=== PATIENT | male | born 1980 | race Caucasian/White ===

== ENCOUNTER 2025-04-22 04:14 | Emergency (ER) | payer BC, SELFPAY ==
[2025-04-22 04:16] VITALS: BP 128/82
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
[2025-04-22] MEDS: NSS 500 IV ×2 (05:01→06:15)
[2025-04-22 05:14] LABS: % Basophils 0.4 % (0-2); % Eosinophils 3.5 % (0-6); % Immature Granulocytes 0.3 % (0-0.5); % Lymphocytes 14.1 % (20.5-51.1); % Monocytes 6.2 % (1.7-9.3); % Neutrophils 75.5 % (42.2-75.2); Absolute Eosinophils 0.4 10^3/uL (0-0.7); Absolute Lymphocytes 1.5 10^3/uL (1.2-3.4); Absolute Monocytes 0.7 10^3/uL (0.1-0.6); Absolute Neutrophils 8.3 10^3/uL (1.4-6.5); Hematocrit 38.5 % (39.0-52.0); Hemoglobin 13.5 g/dL (13.0-18.0); Mean Corp Hgb Conc. 35.1 g/dL (33.0-37.0); Mean Corpuscular Hgb 31.3 pg (27.0-31.0); Mean Corpuscular Volume 89.3 fL (80.0-94.0); Mean Platelet Volume 8.5 fL (7.4-10.4); Nucleated Red Blood Cells % 0 % (-); Platelet Count 240 10^3/uL (130-400); Red Blood Cell Count 4.31 10^6/uL (4.70-6.10); Red Cell Dist. Width 12.1 % (11.5-14.5); White Blood Cell Count 10.9 10^3/uL (4.8-10.8)
[2025-04-22 05:15] VITALS: BP 121/75
[2025-04-22 05:35] LABS: ALT (SGPT) 25 U/L (0-50); AST (SGOT) 23 U/L (17-59); Albumin 4.4 g/dl (3.5-5.0); Alkaline Phosphatase 39 U/L (38-126); Blood Urea Nitrogen 17 mg/dl (9-20); Calcium 9.2 mg/dl (8.4-10.2); Carbon Dioxide 28 mmol/L (22-30); Chloride 107 mmol/L (98-107); Glucose 105 mg/dl (70-99); Potassium 4.6 mmol/L (3.5-5.1); Sodium 139 mmol/L (135-145); Total Bilirubin 0.8 mg/dl (0.2-1.3); Total Protein 6.6 g/dl (6.3-8.2); eGFR > 60.00
[2025-04-22 05:38] VITALS: BP 106/82; BP 123/77; BP 160/95; PULSE 72; PULSE 74; PULSE 75; BMI 23.0
[2025-04-22] MEDS: ZOFRAN 4 MG IV (06:15)
[2025-04-22 06:41] VITALS: BP 110/83
== END 2025-04-22 06:47 | disposition home or self-care (01) ==
LOC: EMR 04:14
PROVIDERS: Physician Assistant; EMERGENCY PHYSICIAN Student in an Organized Health Care Education/Training Program
DX: I95.1 Orthostatic hypotension (principal); G47.00 Insomnia, unspecified; R42 Dizziness and giddiness; F17.200 Nicotine dependence, unspecified, uncomplicated; G25.0 Essential tremor; J45.909 Unspecified asthma, uncomplicated
CPT/HCPCS: 99285; 96374; 96361; 70450; 80053; 85025; 93005

== ENCOUNTER 2025-05-14 03:27 | Emergency (ER) | payer BC, SELFPAY ==
[2025-05-14] VITALS (8 sets, daily range): BP systolic 102–134; BP diastolic 71–92; PULSE 67–68; BMI 21.7
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
[2025-05-14 06:55] LABS: % Basophils 0.5 % (0-2); % Eosinophils 1.5 % (0-6); % Immature Granulocytes 0.3 % (0-0.5); % Lymphocytes 16.7 % (20.5-51.1); % Monocytes 7.2 % (1.7-9.3); % Neutrophils 73.8 % (42.2-75.2); Absolute Basophils 0.1 10^3/uL (0-0.2); Absolute Eosinophils 0.1 10^3/uL (0-0.7); Absolute Lymphocytes 1.6 10^3/uL (1.2-3.4); Absolute Monocytes 0.7 10^3/uL (0.1-0.6); Absolute Neutrophils 6.9 10^3/uL (1.4-6.5); Hematocrit 38.5 % (39.0-52.0); Hemoglobin 13.5 g/dL (13.0-18.0); Mean Corp Hgb Conc. 35.1 g/dL (33.0-37.0); Mean Corpuscular Hgb 31.1 pg (27.0-31.0); Mean Corpuscular Volume 88.7 fL (80.0-94.0); Mean Platelet Volume 8.3 fL (7.4-10.4); Nucleated Red Blood Cells % 0 % (-); Platelet Count 251 10^3/uL (130-400); Red Blood Cell Count 4.34 10^6/uL (4.70-6.10); Red Cell Dist. Width 11.9 % (11.5-14.5); White Blood Cell Count 9.4 10^3/uL (4.8-10.8)
[2025-05-14 06:57] LABS: ALT (SGPT) 25 U/L (0-50); AST (SGOT) 22 U/L (17-59); Albumin 4.6 g/dl (3.5-5.0); Alkaline Phosphatase 40 U/L (38-126); Blood Urea Nitrogen 18 mg/dl (9-20); Calcium 9.8 mg/dl (8.4-10.2); Carbon Dioxide 29 mmol/L (22-30); Chloride 107 mmol/L (98-107); Estimated Creatinine Clearance 103 ml/min; Glucose 106 mg/dl (70-99); Potassium 4.9 mmol/L (3.5-5.1); Sodium 140 mmol/L (135-145); Total Bilirubin 0.8 mg/dl (0.2-1.3); Total Protein 6.9 g/dl (6.3-8.2); eGFR > 60.00
[2025-05-14 07:28] LABS: TSH Reflex To Free T4 0.41 uIU/ml (0.47-4.68)
[2025-05-14 07:58] LABS: Free T4 1.16 ng/dl (0.78-2.19)
[2025-05-14 13:28] LABS: Lyme Antibody Screen, EIA Negative (Negative)
== END 2025-05-14 09:53 | disposition home or self-care (01) ==
LOC: EMR 03:27
PROVIDERS: Physician Assistant; EMERGENCY PHYSICIAN Emergency Medicine
DX: G47.00 Insomnia, unspecified (principal); J45.909 Unspecified asthma, uncomplicated; F17.200 Nicotine dependence, unspecified, uncomplicated
CPT/HCPCS: 99284; 70450; 80053; 84439; 84443; 85025; 86618

== ENCOUNTER 2025-06-09 06:46 | Emergency (ER) | payer BC, SELFPAY ==
[2025-06-09] VITALS (11 sets, daily range): BP systolic 97–150; BP diastolic 62–104; PULSE 66–100; BMI 21.8
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
[2025-06-09 07:49] LABS: Hematocrit 39.5 % (39.0-52.0); Hemoglobin 13.8 g/dL (13.0-18.0); Mean Corp Hgb Conc. 34.9 g/dL (33.0-37.0); Mean Corpuscular Volume 89.8 fL (80.0-94.0); Nucleated Red Blood Cells % 0 % (-); Platelet Count 246 10^3/uL (130-400); Red Cell Dist. Width 12.3 % (11.5-14.5)
[2025-06-09] MEDS: NSS 500 IV (07:56)
[2025-06-09 08:29] LABS: ALT (SGPT) 20 U/L (0-50); AST (SGOT) 19 U/L (17-59); Albumin 4.6 g/dl (3.5-5.0); Alkaline Phosphatase 47 U/L (38-126); Blood Urea Nitrogen 11 mg/dl (9-20); Calcium 9.7 mg/dl (8.4-10.2); Carbon Dioxide 27 mmol/L (22-30); Chloride 106 mmol/L (98-107); Estimated Creatinine Clearance 103 ml/min; Glucose 108 mg/dl (70-99); Potassium 4.4 mmol/L (3.5-5.1); Sodium 138 mmol/L (135-145); Total Protein 6.8 g/dl (6.3-8.2); eGFR > 60.00
[2025-06-09] MEDS: NSS 1000 IV (09:02)
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
--- NOTE | 2025-06-09 09:15 | EDRN ---
Lab notified of add on tests as per neurology.
--- NOTE | 2025-06-09 09:17 | EDRN ---
Pt feels rt arm is weak. No ataxia noted
[2025-06-09] MEDS: ZOFRAN 4 MG IV (10:08)
[2025-06-09 13:54] LABS: Ferritin 154.0 ng/ml (17.9-464.0)
[2025-06-09 14:16] LABS: Folate 12.4 ng/ml (2.76-20); Vitamin B12 428 pg/ml (239-931)
== END 2025-06-09 13:35 | disposition home or self-care (01) ==
LOC: EMR 06:46
PROVIDERS: Physician Assistant; CONSULT PHYSICIAN Psychiatry & Neurology Neurology; EMERGENCY PHYSICIAN Emergency Medicine; FAMILY PHYSICIAN Physician Assistant
DX: R25.1 Tremor, unspecified (principal); R42 Dizziness and giddiness; G47.00 Insomnia, unspecified; R26.89 Other abnormalities of gait and mobility; M54.9 Dorsalgia, unspecified; M54.2 Cervicalgia; J45.909 Unspecified asthma, uncomplicated; F17.200 Nicotine dependence, unspecified, uncomplicated
CPT/HCPCS: 99284; 96374; 96361 ×3; 80053; 80306; 82077; 82607; 82728; 82746; 85025; 85652; 93005

== ENCOUNTER 2025-06-21 17:52 | Emergency (ER) | payer BC, SELFPAY ==
[2025-06-21 17:54] VITALS: BP 119/81
[2025-06-21] MEDS: VALIUM 5 MG PO (19:34)
--- NOTE | 2025-06-21 23:09 | ED.GENMED ---
History of Present Illness
General
Chief Complaint: Musculo-Skeletal Complaint
Source: patient
Exam Limitations: none
Time Seen by Provider: 06/21/25 18:59
Nursing documentation reviewed up to this point in time: agreed with
History of Present Illness
History of Present Illness:
Patient to ED with report of tremors to [facility] x 1 year. He has been evaluated in the ED in the past. He was seen here last week due to tremors and feeling dizzy. Neurology was consulted and he was evaluated in ED. Neurology report reviewed. As
per report, tremors are due to 'functional neurological disorder'. He was advised to followup with psychiatry, PT, vestibular therapy. He states he has an appointment with vestibular therapist next week. Followup with neurology in August. He
reports he is here tonight because he is unable to sleep due to the tremors. No new complaints. To ED accompanied by family for eval.
Past History
Past History
ED Past Medical History: Asthma and Other (right tremor)
Social History
Tobacco: Smoker
Alcohol: None
Employment: Employed
Family History
Family History: Negative Diabetes or Hypertension
Review of Systems
Review of Systems
All Other Systems: ROS reviewed and negative except as documented in HPI and ROS
Constitutional: Reports sleep disturbance
EENT: Reports no symptoms
Respiratory: Reports no symptoms
Cardiac: Reports no symptoms
ABD/GI: Reports no symptoms
: Reports no symptoms
Musculoskeletal: Reports no symptoms
Skin: Reports no symptoms
Neurological: Reports other (right arm tremor)
Psychiatric: Reports anxiety
Phy Exam
General Physical Exam
General Presentation: well appearing and mild distress
General age: appears stated age
General Skin: warm and dry
General Habitus: normal
General Mental: alert
Eye Exam
Eye Exam: PERRL, EOMI, conjunctiva normal and globe normal
Cardiovascular Exam
Cardiovascular Exam: regular rate/rhythm and no edema
Neurological Exam
Neurological Exam: alert, oriented x3, CN II-XII intact, no motor deficits, no sensory deficits and speech normal
Musculoskeletal Exam
Musculoskeletal Exam: full ROM, neuro vasc intact and other (right arm tremor at rest. No tremor noted with movement of arm)
Skin Exam
Skin Exam: normal color, warm/dry and no rash
Psychiatric Exam
Psychiatric Exam: normal mood/affect
Course
Orders/Labs/Results
Orders:
Orders
06/21/25 19:13
Diazepam [Valium] 5 mg PO NOW STA
Vital Signs
Initial and Last Documented VS:
Initial Vital Signs
Temp Pulse Resp BP Pulse Ox
98.5 F 92 16 119/81 98
06/21/25 17:54 06/21/25 17:54 06/21/25 17:54 06/21/25 17:54 06/21/25 17:54
Last Documented Vital Signs
Temp Pulse Resp BP Pulse Ox
98.5 F 72 14 119/81 98
06/21/25 17:54 06/21/25 19:52 06/21/25 19:52 06/21/25 17:54 06/21/25 17:54
*Pulse Oximetry
SaO2: 98
Oxygen Mode of Delivery: Room air
Patient hypoxic: no
*Critical Care Note
Total Time (30-74mins, 75-104mins- exclusive of procedures): Not Applicable
Update Note
Update Note:
Patient to ED with complaint of sleep difficulties due to RUE tremor. Tremor tonight is present at rest. No tremor wtihmovement of extremity. Seen by neurology 1 week ago while in ED who feels tremor is related to Functional Neurolgical disorder.
He has an appt with Vestibular rehab for next week. Needs to make appt for PT. [facility] will [facility] in AUG. Patient given dose of valium in ED with some improvement. WIll give rx for short term. He will followup with PCP in AM to
discuss the effects of tremor on him. He was also given number for neurologist. He will call in AM to attempt earlier appointment.
ED Attending Note
-
Portions of this chart may have been created with voice recognition software.� Occasional wrong word or��sound alike� substitutions may have occurred due to the inherent limitations of voice recognition software.
Discharge Plan
Departure
Patient Disposition: Home (Routine Discharge)
Date of Disposition: 06/21/25
Time of Disposition: 19:44
Patient with high blood pressure during this ER visit?: No
Condition: Good
Covid-19: Not Applicable
Discharge Problem:
Tremor
Instructions: Tremor
Prescriptions:
New
diazepam [Valium] 5 mg tablet
5 mg PO TID PRN (Reason: anxiety) Qty: 7 0RF
No Action
trazodone 50 mg tablet
50 mg PO HS Qty: 14 0RF
Referrals:
Tomas Schafer PA [Family Provider, Family Practice]
Joselin Briggs MD [Non-Admitting Privileges, Neurology] - Call in 1-3 days for appt
Interventions
Interventions:
*Risk Screen - Suicide Last Done: 06/21/25 17:54
*General Assessment Last Done: 06/21/25 19:52
*Neglect/Abuse Screening Last Done: 06/21/25 17:54
*ED- Fall Risk Assessment Last Done: 06/21/25 19:52
*ED COVID-19 Vaccine History Last Done: 06/21/25 19:52
*Nursing Disposition Last Done: 06/21/25 19:52
ED-Musculoskeletal Assessment Last Done: 06/21/25 19:55
Discharge Date and Time
Discharge Date/Time: 06/21/25 21:56
Print Language: BULGARIAN
== END 2025-06-21 21:56 | disposition home or self-care (01) ==
LOC: EMR 17:52
PROVIDERS: EMERGENCY PHYSICIAN Emergency Medicine; FAMILY PHYSICIAN Physician Assistant
DX: R25.1 Tremor, unspecified (principal); G47.9 Sleep disorder, unspecified; J45.909 Unspecified asthma, uncomplicated; F17.200 Nicotine dependence, unspecified, uncomplicated; Z91.048 Other nonmedicinal substance allergy status
CPT/HCPCS: 99283

== ENCOUNTER 2025-06-25 06:53 | Outpatient (RCR) | payer BC, SELFPAY | END 2025-06-25 23:59 | disposition home or self-care (01) | LOC: RPT 06:53 | PROVIDERS: FAMILY PHYSICIAN Physician Assistant | DX: R42 Dizziness and giddiness (principal); Z73.6 Limitation of activities due to disability; R26.2 Difficulty in walking, not elsewhere classified; R25.1 Tremor, unspecified | CPT/HCPCS: 97112; 97162 ==